=== PATIENT | male | born 1995 | race Caucasian/White ===

== ENCOUNTER 2020-03-09 13:07 | Emergency (ER) | payer OTHER ==
[2020-03-09] MEDS ORDERED: Lidocaine 1% 10 ML MDV INJECT ONE (13:19)
[2020-03-09] MEDS ORDERED: Diphtheria,Pertussis(Acell),Tetanus Vaccine 0.5 ML Syringe IM ONE (13:19)
[2020-03-09] MEDS ORDERED: Bupivacaine 0.5% 10 ML SDV INJECT ONE (13:19)
[2020-03-09] MEDS ORDERED: Cephalexin 500 MG Cap PO ONE (14:01)
[2020-03-09] MEDS ORDERED: cefTRIAXone 1 GM Vial IM ONE (14:21)
--- NOTE | 2020-03-09 14:28 | EDM.PDOC ---
ED HPI GENERAL MEDICAL PROBLEM - General Chief Complaint: Upper Extremity Injury/Pain Stated Complaint: R HAND PINKY INJURY Time Seen by Provider: 03/09/20 13:09 Source of Information: Reports: Patient History Limitations: Reports: No Limitations - History of Present Illness INITIAL COMMENTS - FREE TEXT/NARRATIVE: Patient is a 24-year-old male who presents to the emergency department with complaints of injury to his right fifth finger. 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 Injury occurred approximately 1 hour prior to coming to ER. Patient is unsure when his last tetanus vaccination was. - Related Data Allergies Allergy/AdvReac Type Severity Reaction Status Date / Time No Known Allergies Allergy Verified 03/09/20 13:19 Home Meds: Home Meds . [No Known Home Meds] 03/09/20 [History] Past Medical History - Past Health History Medical/Surgical History: Denies Medical/Surgical History Social & Family History - Tobacco Use Smoking Status *Q: Never Smoker Second Hand Smoke Exposure: No - Caffeine Use Caffeine Use: Reports: None - Recreational Drug Use Recreational Drug Use: No Review of Systems - Review of Systems Review Of Systems: Comprehensive ROS is negative, except as noted in HPI. ED EXAM, GENERAL - Physical Exam Exam: See Below Exam Limited By: No Limitations General Appearance: Alert, WD/WN, Mild Distress Respiratory/Chest: No Respiratory Distress, Lungs Clear, Normal Breath Sounds, No Accessory Muscle Use, Chest Non-Tender Cardiovascular: Normal Peripheral Pulses, Regular Rate, Rhythm, No Edema, No Gallop, No JVD, No Murmur, No Rub Extremities: Other (3cm laceration to the vetral-medial distal right 5th finger. Obvious medial deformity. Tissue distal to the injury is pink and warm.) Course - Vital Signs Last Recorded V/S: Last Vital Signs Temp 98.1 F 03/09/20 13:17 Pulse 90 03/09/20 15:01 Resp 16 03/09/20 13:17 BP 140/70 03/09/20 15:01 Pulse Ox 100 03/09/20 15:01 - Orders/Labs/Meds Orders: Active Orders 24 hr Category Date Time Status Vaccines to be Administered [RC] PER UNIT ROUTINE Care 03/09/20 13:19 Active Fingers Fifth Digit Rt F9 [CR] Stat Exams 03/09/20 13:17 Taken Meds: Medications Discontinued Medications Generic Name Dose Route Start Last Admin Trade Name Crystal PRN Reason Stop Dose Admin Bupivacaine HCl 10 ml 03/09/20 13:19 03/09/20 13:49 Sensorcaine-Mpf 0.5% INJECT 03/09/20 13:20 10 ml ONETIME ONE Administration Ceftriaxone Sodium 1 gm 03/09/20 14:21 03/09/20 14:32 Rocephin IM 03/09/20 14:22 1 gm ONETIME ONE Administration Cephalexin 500 mg 03/09/20 14:01 Keflex PO 03/09/20 14:02 ONETIME ONE Diphtheria/Tetanus/Acell Pertussis 0.5 ml 03/09/20 13:19 03/09/20 13:46 Adacel IM 03/09/20 13:20 0.5 ml .ONCE ONE Administration Lidocaine HCl 10 ml 03/09/20 13:19 03/09/20 13:49 Xylocaine 1% INJECT 03/09/20 13:20 10 ml ONETIME ONE Administration - Re-Assessments/Exams Free Text/Narrative Re-Assessment/Exam: 03/09/20 14:26 X-ray of the right fifth finger shows a displaced fracture/partial amputation of the distal aspect of the right finger. Digital block has been completed for pain relief. Patient has received a tetanus vaccination.. Called and spoke with the hand surgeon on-call, Dr. Madrigal at [facility] in [place]. He recommended that the patient come to the emergency department at [facility] in [place] for repair today. Initial plan was to give the patient a dose of Keflex PO, however he should be n.p.o., therefore I have changed to Rocephin 1 g IM. He will go to see [facility] by private vehicle. Wet dressing has been applied to the wound. Departure - Departure Time of Disposition: 14:28 Disposition: DC/Tfer to Acute Hospital 02 Condition: Good Clinical Impression: Fracture, finger, distal phalanx, open Qualifiers: Encounter type: initial encounter Finger: little finger Fracture alignment: displaced Laterality: right Qualified Code(s): S62.636B - Displaced fracture of distal phalanx of right little finger, initial encounter for open fracture - Discharge Information *PRESCRIPTION DRUG MONITORING PROGRAM REVIEWED*: No *COPY OF PRESCRIPTION DRUG MONITORING REPORT IN PATIENT JOSEF: No Instructions: Finger Fracture, Adult Referrals: Winston Madrigal [Consulting Physician] - Forms: ED Department Discharge Additional Instructions: You were seen in the emergency department today for crush injury to your right little finger. X-rays were completed and do show a fracture/partial amputation of the distal aspect of your finger. We did consult with the hand surgeon in [place], Dr. Jimmy Madrigal. He recommended that she go to the ER at [facility] in [place] for repair today. While in the ER, you received a tetanus vaccination and an injection of antibiotics to prevent infection within the bone. Recommend that you go directly to the ER at [facility]. Do not eat or drink anything in route to the facility. You should not drive yourself but rather have someone drive for you. Sepsis Event Note (ED) - Evaluation Sepsis Screening Result: No Definite Risk - Focused Exam Vital Signs: Vital Signs Temp Pulse Resp BP Pulse Ox 03/09/20 15:01 90 140/70 100 03/09/20 13:17 98.1 F 105 H 16 176/81 H 98 - My Orders Last 24 Hours: My Active Orders 03/09/20 13:17 Fingers Fifth Digit Rt F9 [CR] Stat 03/09/20 13:19 Vaccines to be Administered [RC] PER UNIT ROUTINE - Assessment/Plan Last 24 Hours: My Active Orders 03/09/20 13:17 Fingers Fifth Digit Rt F9 [CR] Stat 03/09/20 13:19 Vaccines to be Administered [RC] PER UNIT ROUTINE
--- NOTE | 2020-03-10 14:20 | CR ---
Right 5th finger: 3 views of the right 5th finger were obtained. Comparison: No previous finger study. Soft tissue injury is identified. Displaced fracture is appreciated. No proximal abnormality is appreciated. Impression: 1. Soft tissue injury. 2. Fracture within the distal phalanx. Diagnostic code #3 This report was dictated in MDT
== END 2020-03-09 14:55 ==
LOC: JD.ED 13:07
DX: S62.636B Displaced fracture of distal phalanx of right little finger, initial encounter for open fracture (principal); Z23 Encounter for immunization; W23.0XXA Caught, crushed, jammed, or pinched between moving objects, initial encounter; Y99.0 Civilian activity done for income or pay
CPT/HCPCS: 64450; 73140; 90471; 90715; 96372; 99284; J0696; J2001; J3490; 99283

== ENCOUNTER 2020-12-31 16:50 | Emergency (ER) | payer SELFPAY | END 2020-12-31 17:29 | LOC: JD.ED 16:50 | DX: M79.672 Pain in left foot (principal); Z53.21 Procedure and treatment not carried out due to patient leaving prior to being seen by health care provider ==

== ENCOUNTER 2021-02-10 22:14 | Emergency (ER) | payer BC ==
[2021-02-10] MEDS ORDERED: Ondansetron 4 MG/2 ML SDV IVPUSH ONE (22:39)
[2021-02-10] MEDS ORDERED: Sodium Chloride 0.9% 1,000 ML IV ONE (22:39)
[2021-02-10] MEDS ORDERED: Sodium Chloride 0.9% 10 ML Syringe FLUSH PRN (22:39)
--- NOTE | 2021-02-11 01:31 | EDM.PDOC ---
ED HPI GENERAL MEDICAL PROBLEM - General Chief Complaint: Abdominal Pain Stated Complaint: abdominal pain Time Seen by Provider: 02/10/21 23:00 Source of Information: Reports: Patient History Limitations: Reports: No Limitations - History of Present Illness INITIAL COMMENTS - FREE TEXT/NARRATIVE: The 25-year-old male who is complaining of having vomiting and diarrhea which started this morning. Patient has vomited approximately 6 times has had 4 bouts of diarrhea. None of these contain any blood or coffee grounds or tarry in nature. Patient is feeling somewhat lightheaded and does have some epigastric pain. He states he had drank 3 beers today but was not drinking yesterday's due to being at work all day on 09 February. He describes the abdominal pain as dull and moderate in intensity. He denies any dysuria or any fever or shaking chills. He has had similar symptoms in the past and was told that he had ulcers. He was instructed not to drink alcohol or use spicy food at that time advised that he has ignored. Onset: Today Duration: Getting Worse Location: Reports: Abdomen Improves with: Reports: Rest Worsens with: Reports: Eating Associated Symptoms: Reports: Nausea/Vomiting Upper Abdomen Pain Score (Numeric/FACES): 7 - Related Data Allergies Allergy/AdvReac Type Severity Reaction Status Date / Time No Known Allergies Allergy Verified 03/09/20 13:19 Home Meds: Home Meds Ondansetron [Zofran ODT] 4 mg PO Q6H PRN #10 tab.dis 02/11/21 [Rx] Past Medical History - Past Health History Medical/Surgical History: Denies Medical/Surgical History Psychiatric History: Reports: Anxiety - Past Surgical History Musculoskeletal Surgical History: Reports: Amputation Other Musculoskeletal Surgeries/Procedures:: right 5th digit-1st knuckle-work accident from the [facility] Social & Family History - Tobacco Use Tobacco Use Status *Q: Never Tobacco User - Caffeine Use Caffeine Use: Reports: None - Recreational Drug Use Recreational Drug Type: Reports: Cocaine Recreational Drug Use Frequency: Rarely ED ROS GENERAL - Review of Systems Review Of Systems: Comprehensive ROS is negative, except as noted in HPI. ED EXAM, GI/ABD - Physical Exam Exam: See Below Exam Limited By: No Limitations General Appearance: Alert, No Apparent Distress Head: Normocephalic Neck: Normal Inspection, Supple Respiratory/Chest: No Respiratory Distress, Lungs Clear, Normal Breath Sounds Cardiovascular: Regular Rate, Rhythm, No JVD GI/Abdominal Exam: Normal Bowel Sounds, Soft, No Organomegaly, No Distention, Distended, Tender (In the epigastric area.). No: Guarding, Rigid, Rebound Back Exam: Normal Inspection Extremities: Normal Inspection Neurological: Alert, Oriented Psychiatric: Normal Affect, Normal Mood Skin Exam: Warm, Dry, Normal Color Course - Vital Signs Text/Narrative:: Patient feels better with IV fluids and meds. His labs including LFTs lipase and white blood cell count are all within normal limits. Patient is able to drink p.o. fluids without difficulty now. He is asking me advice on techniques to help him sleep. I think he is hoping I will prescribe him trazodone which worked for him when he was a teenager. I have instructed him to go online and do Google search for sleep habits and to see a PCP about possible other techniques or medications. Patient is to return to emergency department if worse. I will give him a prescription for some Zofran ODT. Last Recorded V/S: Last Vital Signs Temp 98.6 F 02/10/21 22:28 Pulse 86 02/10/21 22:28 Resp 20 02/10/21 22:28 BP 155/80 H 02/10/21 22:28 Pulse Ox 97 02/10/21 22:28 - Orders/Labs/Meds Orders: Active Orders 24 hr Category Date Time Status Peripheral IV Care [RC] . DIRECTED Care 02/10/21 22:40 Active Sodium Chloride 0.9% [Saline Flush] Med 02/10/21 22:39 Active 10 ml FLUSH ASDIRECTED PRN Peripheral IV Insertion Adult [OM.PC] Routine Oth 02/10/21 22:39 Ordered Medication Orders Sodium Chloride (Sodium Chloride 0.9% 10 Ml Syringe) 10 ml FLUSH ASDIRECTED PRN PRN Reason: Keep Vein Open Last Admin: 02/10/21 22:50 Dose: 10 ml Documented by: LAVON Labs: Laboratory Tests 02/10/21 02/10/21 02/10/21 Range/Units 22:33 22:33 23:17 WBC 7.66 (4.23-9.07) K/mm3 RBC 4.62 L (4.63-6.08) M/mm3 Hgb 14.2 (13.7-17.5) gm/dl Hct 40.6 (40.1-51.0) % MCV 87.9 (79.0-92.2) fl MCH 30.7 (25.7-32.2) pg MCHC 35.0 (32.2-35.5) g/dl RDW Std Deviation 40.4 (35.1-43.9) fL Plt Count 258 (163-337) K/mm3 MPV 11.3 (9.4-12.3) fl Neutrophils % (Manual) 50 (40-60) % Band Neutrophils % 0 (0-10) % Lymphocytes % (Manual) 31 (20-40) % Atypical Lymphs % 12 % Monocytes % (Manual) 5 (2-10) % Eosinophils % (Manual) 2 (0.8-7.0) % Basophils % (Manual) 0 L (0.2-1.2) Platelet Estimate Adequate Plt Morphology Comment Normal RBC Morph Comment Normal Sodium 143 (136-145) mEq/L Potassium 3.3 L (3.5-5.1) mEq/L Chloride 107 (98-107) mEq/L Carbon Dioxide 24 (21-32) mEq/L Anion Gap 15.3 H (5-15) BUN 11 (7-18) mg/dL Creatinine 0.9 (0.7-1.3) mg/dL Est Cr Clr Drug Dosing 135.96 mL/min Estimated GFR (MDRD) > 60 (>60) mL/min BUN/Creatinine Ratio 12.2 L (14-18) Glucose 128 H (70-99) mg/dL Calcium 8.2 L (8.5-10.1) mg/dL Total Bilirubin 0.3 (0.2-1.0) mg/dL AST 21 (15-37) U/L ALT 44 (16-63) U/L Alkaline Phosphatase 87 (46-116) U/L Total Protein 7.3 (6.4-8.2) g/dl Albumin 3.9 (3.4-5.0) g/dl Globulin 3.4 gm/dL Albumin/Globulin Ratio 1.2 (1-2) Lipase 133 (73-393) U/L Urine Color Yellow (Yellow) Urine Appearance Clear (Clear) Urine pH 6.5 (5.0-8.0) Ur Specific Elim 1.020 (1.005-1.030) Urine Protein Negative (Negative) Urine Glucose (UA) Negative (Negative) Urine Ketones Negative (Negative) Urine Occult Blood Negative (Negative) Urine Nitrite Negative (Negative) Urine Bilirubin Negative (Negative) Urine Urobilinogen 0.2 (0.2-1.0) Ur Leukocyte Esterase Negative (Negative) Meds: Medications Generic Name Dose Route Start Last Admin Trade Name Freq PRN Reason Stop Dose Admin Sodium Chloride 10 ml 02/10/21 22:39 02/10/21 22:50 Sodium Chloride 0.9% 10 Ml Syringe FLUSH 10 ml ASDIRECTED PRN Administration Keep Vein Open Discontinued Medications Generic Name Dose Route Start Last Admin Trade Name Freq PRN Reason Stop Dose Admin Sodium Chloride 1,000 mls @ 1,000 mls/hr 02/10/21 22:39 02/10/21 22:48 Normal Saline IV 02/10/21 23:38 1,000 mls/hr ONETIME ONE Administration Ondansetron HCl 4 mg 02/10/21 22:39 02/10/21 22:49 Ondansetron 4 Mg/2 Ml Sdv IVPUSH 02/10/21 22:40 4 mg ONETIME ONE Administration Departure - Departure Time of Disposition: 01:33 Disposition: Home, Self-Care 01 Condition: Good Clinical Impression: Gastroenteritis - Discharge Information Instructions: Viral Gastroenteritis, Adult, [id number], Nausea and Vomiting, Adult, [id number] Referrals: PCP,None [Primary Care Provider] - Forms: ED Department Discharge Additional Instructions: Zofran ODT. Clear liquid diet advance as tolerated. Return to ER symptoms are worse. Follow-up with PCP for recheck this week if possible. Sepsis Event Note (ED) - Evaluation Sepsis Screening Result: No Definite Risk - Focused Exam Vital Signs: Vital Signs Temp Pulse Resp BP Pulse Ox 02/10/21 22:28 98.6 F 86 20 155/80 H 97 - My Orders Last 24 Hours: My Active Orders 02/10/21 22:39 Sodium Chloride 0.9% [Saline Flush] 10 ml FLUSH ASDIRECTED PRN Peripheral IV Insertion Adult [OM.PC] Routine 02/10/21 22:40 Peripheral IV Care [RC] . DIRECTED - Assessment/Plan Last 24 Hours: My Active Orders 02/10/21 22:39 Sodium Chloride 0.9% [Saline Flush] 10 ml FLUSH ASDIRECTED PRN Peripheral IV Insertion Adult [OM.PC] Routine 02/10/21 22:40 Peripheral IV Care [RC] . DIRECTED
== END 2021-02-11 01:50 | disposition home or self-care (01) ==
LOC: JD.ED 22:14
DX: K52.9 Noninfective gastroenteritis and colitis, unspecified (principal)
CPT/HCPCS: 36415; 80053; 81003; 83690; 85007; 85027; 96374; 99284; J2405; J7030

== ENCOUNTER 2021-10-23 05:31 | Emergency (ER) | payer SELFPAY ==
[2021-10-23] MEDS ORDERED: Bupivacaine 0.5% 10 ML SDV INJECT ONE (05:58)
[2021-10-23] MEDS ORDERED: Lidocaine 1% with EPINEPHrine 1:100,000 10 ML MDV INJECT ONE (05:58)
== END 2021-10-23 06:35 | disposition home or self-care (01) ==
LOC: JD.ED 05:31
DX: S51.812A Laceration without foreign body of left forearm, initial encounter (principal); Z86.16 Personal history of COVID-19; W26.8XXA Contact with other sharp object(s), not elsewhere classified, initial encounter
CPT/HCPCS: 12002; 99282; J3490; 99283

== ENCOUNTER 2023-07-20 19:16 | Emergency (ER) | payer BC ==
[2023-07-20] MEDS ORDERED: Sodium Chloride 0.9% 10 ML Syringe FLUSH PRN (19:38)
[2023-07-20] MEDS ORDERED: Ondansetron 4 MG/2 ML SDV IVPUSH ONE (19:41)
[2023-07-20 20:12] LABS: BASOPHILS PERCENT AUTO 0.3 % (0.0-1.0); EOSINOPHILS ABSOLUTE AUTO 0.1 K/mm3 (0.0-0.4); EOSINOPHILS PERCENT AUTO 0.6 % (0.0-6.0); HEMATOCRIT 44.8 % (42.0-52.0); IMMATURE GRAN ABSOLUTE AUTO 0.07 K/mm3 (0.00-0.05); IMMATURE GRAN PERCENT AUTO 0.6 % (0.0-0.4); LYMPHOCYTES ABSOLUTE AUTO 2.2 K/mm3 (1.0-4.8); LYMPHOCYTES PERCENT AUTO 20.2 % (24.0-44.0); MEAN CORPUSCULAR HEMOGLOBIN 30.3 pg (28.0-32.0); MEAN CORPUSCULAR HGB CONC 35.7 g/dl (32.0-36.0); MEAN CORPUSCULAR VOLUME 84.8 fl (83.0-99.0); MEAN PLATELET VOLUME 11.1 fl (9.4-12.4); MONOCYTES ABSOLUTE AUTO 0.9 K/mm3 (0.0-0.8); MONOCYTES PERCENT AUTO 7.9 % (0.0-8.0); NEUTROPHILS ABSOLUTE AUTO 7.8 K/mm3 (1.8-7.7); NEUTROPHILS PERCENT AUTO 70.4 % (41.0-71.0); PLATELET COUNT,PLT 290 K/mm3 (150-400); RED BLOOD CELL COUNT 5.28 M/mm3 (4.52-5.90); WHITE BLOOD CELL COUNT,WBC 11.08 K/mm3 (3.9-11.3)
[2023-07-20 20:33] LABS: A/G RATIO 1.1 (1-2); ALBUMIN 4.3 g/dl (3.4-5.0); BUN/CREATININE RATIO 19.1 (14-18); CALCIUM 9.5 mg/dL (8.5-10.1); CREATININE 1.1 mg/dL (0.7-1.3); EST CRCL DRUG DOSING (CG) 109.34 mL/min; PROTEIN TOTAL,TP 8.1 g/dl (6.4-8.2)
== END 2023-07-20 20:52 | disposition home or self-care (01) ==
LOC: JD.ED 19:16
DX: S16.1XXA Strain of muscle, fascia and tendon at neck level, initial encounter (principal); S00.03XA Contusion of scalp, initial encounter; R93.0 Abnormal findings on diagnostic imaging of skull and head, not elsewhere classified; Z86.16 Personal history of COVID-19; W22.8XXA Striking against or struck by other objects, initial encounter
CPT/HCPCS: 36415; 70450; 72125; 80053; 83735; 85025; 96374; 99284; J2405; J3490

== ENCOUNTER 2023-12-25 13:58 | Emergency (ER) | payer BC | END 2023-12-25 16:45 | disposition left against medical advice (07) | LOC: JD.ED 13:58 | DX: Z53.21 Procedure and treatment not carried out due to patient leaving prior to being seen by health care provider (principal) ==

== ENCOUNTER 2023-12-26 09:39 | Emergency (ER) | payer SELFPAY ==
[2023-12-26] MEDS: Sodium Chloride 0.9% 1,000 ML IV ONE ×2 (10:17→13:07)
[2023-12-26] MEDS: Pantoprazole 40 MG Vial IVPUSH ONE (10:17)
[2023-12-26 10:42] LABS: BASOPHILS PERCENT AUTO 0.4 % (0.0-1.0); EOSINOPHILS ABSOLUTE AUTO 0.2 K/mm3 (0.0-0.4); EOSINOPHILS PERCENT AUTO 2.5 % (0.0-6.0); HEMATOCRIT 45.1 % (42.0-52.0); HEMOGLOBIN 15.9 gm/dl (14.0-18.0); IMMATURE GRAN ABSOLUTE AUTO 0.04 K/mm3 (0.00-0.05); IMMATURE GRAN PERCENT AUTO 0.5 % (0.0-0.4); LYMPHOCYTES ABSOLUTE AUTO 1.7 K/mm3 (1.0-4.8); MEAN CORPUSCULAR HEMOGLOBIN 30.4 pg (28.0-32.0); MEAN CORPUSCULAR HGB CONC 35.3 g/dl (32.0-36.0); MEAN CORPUSCULAR VOLUME 86.2 fl (83.0-99.0); MEAN PLATELET VOLUME 10.9 fl (9.4-12.4); MONOCYTES ABSOLUTE AUTO 0.4 K/mm3 (0.0-0.8); MONOCYTES PERCENT AUTO 5.7 % (0.0-8.0); NEUTROPHILS PERCENT AUTO 67.9 % (41.0-71.0); PLATELET COUNT,PLT 283 K/mm3 (150-400); RED BLOOD CELL COUNT 5.23 M/mm3 (4.52-5.90); WHITE BLOOD CELL COUNT,WBC 7.34 K/mm3 (3.9-11.3)
[2023-12-26 11:52] LABS: APPEARANCE,URINE CLEAR (Clear); BILIRUBIN,URINE NEGATIVE (Negative); COLOR,URINE YELLOW (Yellow); GLUCOSE,URINE NEGATIVE (Negative); KETONES,URINE NEGATIVE (Negative); LEUKOCYTE ESTERASE,URINE NEGATIVE (Negative); NITRITE,URINE NEGATIVE (Negative); OCCULT BLOOD,URINE NEGATIVE (Negative); PH,URINE 6.5 (5.0-8.0); PROTEIN,URINE NEGATIVE (Negative); UROBILINOGEN,URINE 0.2 (0.2-1.0)
[2023-12-26 11:52] LABS: A/G RATIO 1.1 (1-2); ALBUMIN 4.1 g/dl (3.4-5.0); BILIRUBIN TOTAL 0.5 mg/dL (0.2-1.0); BUN/CREATININE RATIO 7.5 (14-18); CALCIUM 9.1 mg/dL (8.5-10.1); CREATININE 0.8 mg/dL (0.7-1.3); EST CRCL DRUG DOSING (CG) 144.48 mL/min; ETHANOL BLOOD MEDICAL 0.07 gm% (0.00); MAGNESIUM 1.8 mg/dL (1.8-2.4); PHOSPHORUS 3.5 mg/dL (2.6-4.7); PROTEIN TOTAL,TP 7.7 g/dl (6.4-8.2)
[2023-12-26 12:03] LABS: ANION GAP 16.6 (5-15); POTASSIUM,K 3.6 mEq/L (3.5-5.1)
[2023-12-26 12:05] LABS: AMPHETAMINES SCREEN, URINE NEGATIVE (CUTOFF=500); BARBITURATE SCREEN,URINE NEGATIVE (CUTOFF=200); BENZODIAZEPINES SCREEN,URINE NEGATIVE (CUTOFF=150); BUPRENORPHINE SCREEN,URINE NEGATIVE (CUTOFF=10); METHADONE SCREEN, URINE NEGATIVE (CUT0FF=200); METHAMPHETAMINES SCREEN, URINE NEGATIVE (CUTOFF=500); OXYCODONE SCREEN,URINE PRESUMPTIVE POSITIVE (CUT0FF=100); THC SCREEN,URINE 20 NG/ML NEGATIVE (CUTOFF=50)
== END 2023-12-26 17:26 | disposition home or self-care (01) ==
LOC: JD.ED 09:39
DX: T40.2X2A Poisoning by other opioids, intentional self-harm, initial encounter (principal); T40.412A Poisoning by fentanyl or fentanyl analogs, intentional self-harm, initial encounter; F32.A Depression, unspecified; Z79.899 Other long term (current) drug therapy; Z86.16 Personal history of COVID-19
CPT/HCPCS: 36415; 80053; 80143; 80179; 80306; 80307; 81003; 83735; 84100; 84443; 84484; 85025; 93005; 96361; 96374; 99284-25; 99285; C9113; J7030

== ENCOUNTER 2024-10-07 00:22 | Emergency (ER) | payer BC ==
[2024-10-07] MEDS: Pantoprazole 40 MG in Sodium Chloride 0.9% 100 ML IV ONE (01:14)
[2024-10-07] MEDS: Ondansetron 4 MG/2 ML SDV IVPUSH ONE (01:16)
[2024-10-07] MEDS: Pantoprazole 40 MG Vial IV ONE (01:17)
[2024-10-07 01:18] LABS: BASOPHILS ABSOLUTE AUTO 0.1 K/mm3 (0.0-0.2); BASOPHILS PERCENT AUTO 0.7 % (0.0-1.0); EOSINOPHILS ABSOLUTE AUTO 0.2 K/mm3 (0.0-0.4); EOSINOPHILS PERCENT AUTO 1.6 % (0.0-6.0); HEMATOCRIT 44.6 % (42.0-52.0); HEMOGLOBIN 15.6 gm/dl (14.0-18.0); IMMATURE GRAN ABSOLUTE AUTO 0.07 K/mm3 (0.00-0.05); IMMATURE GRAN PERCENT AUTO 0.8 % (0.0-0.4); LYMPHOCYTES ABSOLUTE AUTO 2.3 K/mm3 (1.0-4.8); LYMPHOCYTES PERCENT AUTO 24.8 % (24.0-44.0); MEAN CORPUSCULAR HEMOGLOBIN 30.1 pg (28.0-32.0); MEAN CORPUSCULAR VOLUME 85.9 fl (83.0-99.0); MEAN PLATELET VOLUME 10.7 fl (9.4-12.4); MONOCYTES ABSOLUTE AUTO 0.8 K/mm3 (0.0-0.8); MONOCYTES PERCENT AUTO 8.2 % (0.0-8.0); NEUTROPHILS ABSOLUTE AUTO 5.8 K/mm3 (1.8-7.7); NEUTROPHILS PERCENT AUTO 63.9 % (41.0-71.0); PLATELET COUNT,PLT 266 K/mm3 (150-400); RED BLOOD CELL COUNT 5.19 M/mm3 (4.52-5.90)
[2024-10-07 01:39] LABS: INR 1.02; PROTHROMBIN TIME 10.8 SECONDS (9.7-12.0)
[2024-10-07 01:42] LABS: A/G RATIO 1.2 (1-2); ALBUMIN 3.9 g/dl (3.4-5.0); ANION GAP 15.1 (5-15); BILIRUBIN TOTAL 0.2 mg/dL (0.2-1.0); CALCIUM 9.1 mg/dL (8.5-10.1); EST CRCL DRUG DOSING (CG) 107.35 mL/min; POTASSIUM,K 4.1 mEq/L (3.5-5.1); PROTEIN TOTAL,TP 7.3 g/dl (6.4-8.2)
[2024-10-07 01:50] LABS: APPEARANCE,URINE CLEAR (Clear); BILIRUBIN,URINE NEGATIVE (Negative); COLOR,URINE YELLOW (Yellow); GLUCOSE,URINE NEGATIVE (Negative); KETONES,URINE NEGATIVE (Negative); LEUKOCYTE ESTERASE,URINE NEGATIVE (Negative); NITRITE,URINE NEGATIVE (Negative); OCCULT BLOOD,URINE NEGATIVE (Negative); PROTEIN,URINE TRACE (Negative); UROBILINOGEN,URINE 0.2 (0.2-1.0)
[2024-10-07 02:02] LABS: BARBITURATE SCREEN,URINE NEGATIVE (CUTOFF=200); BENZODIAZEPINES SCREEN,URINE NEGATIVE (CUTOFF=150); BUPRENORPHINE SCREEN,URINE NEGATIVE (CUTOFF=10); METHADONE SCREEN, URINE NEGATIVE (CUT0FF=200); METHAMPHETAMINES SCREEN, URINE NEGATIVE (CUTOFF=500); OXYCODONE SCREEN,URINE NEGATIVE (CUT0FF=100); THC SCREEN,URINE 20 NG/ML NEGATIVE (CUTOFF=50)
[2024-10-07 02:06] LABS: AMPHETAMINES SCREEN, URINE NEGATIVE (CUTOFF=500)
[2024-10-07 02:18] LABS: RBC,URINE 0-5 /hpf (0-5)
[2024-10-07 02:19] LABS: BACTERIA,URINE RARE /hpf (FEW); EPITHELIAL CELLS,URINE 0-5 /hpf (0-5); MUCUS,URINE MODERATE /hpf (FEW); WBC,URINE 0-5 /hpf (0-5)
== END 2024-10-07 03:11 | disposition home or self-care (01) ==
LOC: JD.ED 00:22
DX: R11.2 Nausea with vomiting, unspecified (principal); R31.9 Hematuria, unspecified; F17.210 Nicotine dependence, cigarettes, uncomplicated; Z86.16 Personal history of COVID-19
CPT/HCPCS: 36415; 71045; 80053; 80306; 81001; 83690; 85025; 85610; 85730; 96374; 96375; 99284; J2405; J2470